=== PATIENT | female | born 1965 | race Caucasian/White ===

== ENCOUNTER 2021-07-03 09:49 | Outpatient (CLI) | payer OTHER | END 2021-07-03 09:50 | disposition home or self-care (01) | LOC: CSHCT 09:49 | PROVIDERS: ATTEND Internal Medicine Hematology & Oncology | DX: C53.8 Malignant neoplasm of overlapping sites of cervix uteri (principal); C78.00 Secondary malignant neoplasm of unspecified lung | CPT/HCPCS: 71260; 74177; 82565 ==

== ENCOUNTER 2021-09-01 13:46 | Emergency (ER) | payer OTHER ==
[2021-09-01 15:15] LABS: #Basophils 0.1 10x3/uL (0.0-0.2); #Eosinphils 0.1 10x3/uL (0.0-0.5); #Monocytes 1.2 10x3/uL (0.0-1.1); #Neutrophils 12.1 10x3/uL (1.5-8.4); %Basophils 0.5 % (0.0-2.0); %Eosinophils 0.5 % (0.0-6.0); %Lymphocytes 16.6 % (18.0-47.0); %Neutrophils 72.9 % (40.0-75.0); Hemoglobin 10.4 g/dL (12.0-15.5); Mean Corpuscular HGB CONC 32.3 g/dL (32.0-36.0); Mean Corpuscular Hemoglobin 29.6 pg (27.0-33.0); Mean Corpuscular Volume 91.7 fl (81.6-98.3); Mean Platelet Volume 9.9 fl (7.4-10.4); Platelet Count 394 10x3/uL (150-450); RBC Distribution Width 16.8 % (11.5-14.5); Red Blood Cell (RBC) Count 3.51 10x6/uL (3.90-5.03); White Blood Cell (WBC) Count 16.6 10x3/uL (3.5-10.5)
[2021-09-01 15:22] LABS: INR-International Normal Ratio 1.1; PTT 27.1 sec (22.0-33.0); Prothrombin Time 12.4 sec (9.5-12.1)
[2021-09-01 15:27] LABS: ALT (SGPT) 10 U/L (8-55); AST (SGOT) 22 U/L (5-34); Albumin 2.9 g/dL (3.5-5.0); Alkaline Phosphatase 91 U/L (40-110); Anion Gap 16 mmol/L (10-20); BUN (Urea Nitrogen) 8 mg/dL (9.8-20.1); Bilirubin, Total 0.6 mg/dL (0.2-1.2); CK (CPK) 13 U/L (29-168); Calc. Creatinine Clearance 0 mL/min (70-130); Calcium 8.4 mg/dL (7.8-10.44); Carbon Dioxide 20 mmol/L (22-29); Chloride 109 mmol/L (98-107); Globulin 4.1 g/dL (2.4-3.5); Glucose 108 mg/dL (70-105); Lipase 134 U/L (8-78); Potassium 3.3 mmol/L (3.5-5.1); Sodium 142 mmol/L (136-145)
[2021-09-01] MEDS ORDERED: Ondansetron PF 4 MG/2 ML Vial ONE (17:05)
[2021-09-01 20:19] LABS: Bilirubin Neg (Negative); Blood, Urine 10 (Negative); Clarity Clear (Clear); Glucose, Urine (Dipstick) Normal (Negative); Ketone, Urine 15 mg/dL (Negative); Leukocyte 25 (Negative); Nitrite Negative (Negative); Protein, Urine (Dipstick) 30 mg/dl (Neg-Trace)
[2021-09-01 20:38] LABS: Bacteria/HPF 1+ HPF (None Seen)
== END 2021-09-01 21:49 | disposition home or self-care (01) ==
LOC: CSHERS 13:46
DX: E86.0 Dehydration (principal); R11.2 Nausea with vomiting, unspecified; E03.9 Hypothyroidism, unspecified; K21.9 Gastro-esophageal reflux disease without esophagitis; G62.9 Polyneuropathy, unspecified
CPT/HCPCS: 36415; 80053; 81003; 81015; 82550; 83605; 83690; 84484; 85025; 85610; 85730; 93005; 96374; J2405

== ENCOUNTER 2021-09-22 11:03 | Inpatient (IN) | payer OTHER ==
[2021-09-22] MEDS ORDERED: Ondansetron PF 4 MG/2 ML Vial ONE (12:08)
[2021-09-22 12:13] LABS: Mean Corpuscular Hemoglobin 29.1 pg (27.0-33.0); Mean Corpuscular Volume 93.7 fl (81.6-98.3); Mean Platelet Volume 10.2 fl (7.4-10.4); Platelet Count 297 10x3/uL (150-450); RBC Distribution Width 16.4 % (11.5-14.5); Red Blood Cell (RBC) Count 4.13 10x6/uL (3.90-5.03); White Blood Cell (WBC) Count 15.9 10x3/uL (3.5-10.5)
[2021-09-22 12:26] LABS: MDiff Complete? YES
[2021-09-22 12:35] LABS: Band 3 % (5-11); Lymphocytes 4 % (21-51); Monocytes 5 % (0-10); Neutrophil 88 % (42-75)
[2021-09-22 12:36] LABS: Anisocytosis SLIGHT = 6-15 cells (100X) (0-5/hpf); Platelet Morphology Comment Appears Adequate
[2021-09-22] MEDS ORDERED: Cefepime 1 GM VIAL ONE (12:43)
[2021-09-22 12:53] LABS: ALT (SGPT) 11 U/L (8-55); AST (SGOT) 24 U/L (5-34); Alkaline Phosphatase 94 U/L (40-110); Anion Gap 16 mmol/L (10-20); BUN (Urea Nitrogen) 13 mg/dL (9.8-20.1); Bilirubin, Total 0.8 mg/dL (0.2-1.2); CK (CPK) 18 U/L (29-168); Calc. Creatinine Clearance 0 mL/min (70-130); Calcium 8.3 mg/dL (7.8-10.44); Carbon Dioxide 20 mmol/L (22-29); Chloride 107 mmol/L (98-107); Globulin 3.8 g/dL (2.4-3.5); Glucose 116 mg/dL (70-105); Lipase 46 U/L (8-78); Potassium 4.2 mmol/L (3.5-5.1); Protein, Total 6.8 g/dL (6.0-8.3); Sodium 139 mmol/L (136-145)
[2021-09-22 13:06] LABS: SARS-CoV-2 NAA Rapid Test Not Detected (NotDetected)
[2021-09-22] MEDS ORDERED: Promethazine HCl 25 MG/ML VIAL ONE (13:54)
[2021-09-22 14:33] LABS: Bilirubin Neg (Negative); Blood, Urine 10 (Negative); Clarity Cloudy (Clear); Glucose, Urine (Dipstick) Normal (Negative); Ketone, Urine Negative (Negative); Leukocyte 500 (Negative); Nitrite Negative (Negative); Protein, Urine (Dipstick) 30 mg/dl (Neg-Trace); Specific Gravity, Urine 1.005 (1.002-1.036); Urobilinogen Normal mg/dL (Less than 2); pH, Urine 6.5 (5.0-9.0)
[2021-09-22 14:35] LABS: RBC/HPF 0-3 HPF (0-3)
[2021-09-22 14:36] LABS: Bacteria/HPF 3+ HPF (None Seen)
[2021-09-22] MEDS ORDERED: Ondansetron ODT 4 MG TAB PO PRN (14:50)
[2021-09-22] MEDS ORDERED: Acetaminophen 650 MG Suppository PR PRN (14:50)
[2021-09-22] MEDS ORDERED: Nitroglycerin 0.4 MG TAB (25 Tab Bottle) SL PRN (15:08)
[2021-09-22 15:36] LABS: Lactic Acid 1.6 mmol/L (0.5-2.2)
[2021-09-22] MEDS: Sodium Chloride 0.9% 1,000 ML IV SCH (19:39)
[2021-09-22] MEDS: Metoprolol Tartrate 25 MG TAB PO SCH (22:07)
[2021-09-22] MEDS: Ondansetron PF 4 MG/2 ML Vial IVP PRN (22:07)
[2021-09-22] MEDS: Gabapentin 300 MG CAP PO SCH (22:07)
[2021-09-23] MEDS: Cefepime 1 GM in Sodium Chloride 0.9% 100 ML IVPB SCH ×2 (01:44→13:47)
[2021-09-23] MEDS: Sodium Chloride 0.9% 1,000 ML IV SCH ×3 (01:56→21:23)
[2021-09-23] MEDS: Acetaminophen 325 MG TAB PO PRN ×3 (02:03→21:21)
[2021-09-23 02:48] VITALS: BMI 37.2
[2021-09-23 06:03] LABS: Anion Gap 14 mmol/L (10-20); BUN (Urea Nitrogen) 12 mg/dL (9.8-20.1); Calc. Creatinine Clearance 94 mL/min (70-130); Carbon Dioxide 19 mmol/L (22-29); Chloride 110 mmol/L (98-107); Glucose 95 mg/dL (70-105); Potassium 4.2 mmol/L (3.5-5.1); Sodium 139 mmol/L (136-145)
[2021-09-23 06:12] LABS: #Basophils 0.1 10x3/uL (0.0-0.2); #Monocytes 0.4 10x3/uL (0.0-1.1); #Neutrophils 11.9 10x3/uL (1.5-8.4); %Basophils 0.4 % (0.0-2.0); %Eosinophils 0.1 % (0.0-6.0); %Monocytes 2.9 % (0.0-10.0); %Neutrophils 90.1 % (40.0-75.0); Hemoglobin 9.2 g/dL (12.0-15.5); Mean Corpuscular Hemoglobin 29.1 pg (27.0-33.0); Mean Corpuscular Volume 97.2 fl (81.6-98.3); Mean Platelet Volume 10.3 fl (7.4-10.4); Platelet Count 207 10x3/uL (150-450); RBC Distribution Width 16.5 % (11.5-14.5); Red Blood Cell (RBC) Count 3.16 10x6/uL (3.90-5.03); White Blood Cell (WBC) Count 13.2 10x3/uL (3.5-10.5)
[2021-09-23] MEDS: Levothyroxine Sodium 25 MCG TAB PO SCH (06:12)
[2021-09-23] MEDS: Polyethylene Glycol 3350 17 GM Packet PO SCH (08:12)
[2021-09-23] MEDS: Enoxaparin Sodium 40 MG/0.4 ML SYRINGE SC SCH (08:12)
[2021-09-23] MEDS: Ondansetron PF 4 MG/2 ML Vial IVP PRN ×3 (08:13→21:09)
[2021-09-23] MEDS: Potassium Chloride 10 MEQ TAB PO SCH (08:13)
[2021-09-23] MEDS: Metoprolol Tartrate 25 MG TAB PO SCH ×2 (08:13→21:10)
[2021-09-23] MEDS: NIFEdipine XL 30 MG TAB PO SCH (08:14)
[2021-09-23] MEDS: Amlodipine 5 MG TAB PO SCH (08:14)
[2021-09-23] MEDS: Aspirin Chewable 81 MG TAB PO SCH (08:14)
[2021-09-23] MEDS: Valsartan 80 MG TAB PO SCH (08:32)
[2021-09-23] MEDS: Promethazine HCl 12.5 MG in Sodium Chloride 0.9% 50 ML IVPB PRN (17:33)
[2021-09-23] MEDS: Gabapentin 300 MG CAP PO SCH (21:10)
[2021-09-24] MEDS: Cefepime 1 GM in Sodium Chloride 0.9% 100 ML IVPB SCH ×2 (01:12→14:15)
[2021-09-24] MEDS: Sodium Chloride 0.9% 1,000 ML IV SCH ×2 (05:27→14:15)
[2021-09-24] MEDS: Levothyroxine Sodium 25 MCG TAB PO SCH (05:27)
[2021-09-24 05:56] LABS: Anion Gap 12 mmol/L (10-20); BUN (Urea Nitrogen) 11 mg/dL (9.8-20.1); Calc. Creatinine Clearance 112 mL/min (70-130); Calcium 7.4 mg/dL (7.8-10.44); Carbon Dioxide 18 mmol/L (22-29); Chloride 111 mmol/L (98-107); Glucose 93 mg/dL (70-105); Potassium 3.8 mmol/L (3.5-5.1); Sodium 137 mmol/L (136-145)
[2021-09-24 06:02] LABS: #Basophils 0.1 10x3/uL (0.0-0.2); #Eosinphils 0.1 10x3/uL (0.0-0.5); #Monocytes 1.2 10x3/uL (0.0-1.1); #Neutrophils 7.5 10x3/uL (1.5-8.4); %Basophils 0.6 % (0.0-2.0); %Eosinophils 0.6 % (0.0-6.0); %Lymphocytes 17.4 % (18.0-47.0); %Monocytes 11.4 % (0.0-10.0); %Neutrophils 69.4 % (40.0-75.0); Hemoglobin 8.3 g/dL (12.0-15.5); Mean Corpuscular HGB CONC 30.7 g/dL (32.0-36.0); Mean Corpuscular Hemoglobin 28.8 pg (27.0-33.0); Mean Corpuscular Volume 93.8 fl (81.6-98.3); Mean Platelet Volume 10.5 fl (7.4-10.4); Platelet Count 185 10x3/uL (150-450); RBC Distribution Width 16.4 % (11.5-14.5); Red Blood Cell (RBC) Count 2.88 10x6/uL (3.90-5.03); White Blood Cell (WBC) Count 10.8 10x3/uL (3.5-10.5)
[2021-09-24] MEDS ORDERED: FLU VACC QS2021-22(6MOS UP)/PF 60 MCG/0.5 ML SYRINGE IM ONE (09:00)
[2021-09-24] MEDS: Ondansetron PF 4 MG/2 ML Vial IVP PRN ×2 (10:02→20:31)
[2021-09-24] MEDS: Potassium Chloride 10 MEQ TAB PO SCH (10:08)
[2021-09-24] MEDS: Amlodipine 5 MG TAB PO SCH (10:08)
[2021-09-24] MEDS: NIFEdipine XL 30 MG TAB PO SCH (10:09)
[2021-09-24] MEDS: Metoprolol Tartrate 25 MG TAB PO SCH ×2 (10:09→20:30)
[2021-09-24] MEDS: Acetaminophen 325 MG TAB PO PRN ×2 (10:09→23:28)
[2021-09-24] MEDS: Aspirin Chewable 81 MG TAB PO SCH (10:10)
[2021-09-24] MEDS: Enoxaparin Sodium 40 MG/0.4 ML SYRINGE SC SCH (10:10)
[2021-09-24] MEDS: Polyethylene Glycol 3350 17 GM Packet PO SCH (10:11)
[2021-09-24] MEDS: Valsartan 80 MG TAB PO SCH (10:11)
[2021-09-24] MEDS: Promethazine HCl 12.5 MG in Sodium Chloride 0.9% 50 ML IVPB PRN (15:21)
[2021-09-24] MEDS: Gabapentin 300 MG CAP PO SCH (20:30)
[2021-09-25] MEDS: Cefepime 1 GM in Sodium Chloride 0.9% 100 ML IVPB SCH ×2 (00:20→15:50)
[2021-09-25] MEDS ORDERED: VANCOMYCIN 2 GM IVPB SCH (01:00)
[2021-09-25] MEDS ORDERED: SODIUM CHLORIDE 0.9% IVPB SCH (01:00)
[2021-09-25] MEDS: Sodium Chloride 0.9% 1,000 ML IV SCH ×3 (04:17→23:00)
[2021-09-25 04:18] LABS: Mean Corpuscular HGB CONC 31.4 g/dL (32.0-36.0); Mean Corpuscular Hemoglobin 28.9 pg (27.0-33.0); Mean Corpuscular Volume 92.3 fl (81.6-98.3); Mean Platelet Volume 10.9 fl (7.4-10.4); Platelet Count 189 10x3/uL (150-450); RBC Distribution Width 16.3 % (11.5-14.5); Red Blood Cell (RBC) Count 3.11 10x6/uL (3.90-5.03); White Blood Cell (WBC) Count 17.8 10x3/uL (3.5-10.5)
[2021-09-25 04:33] LABS: MDiff Complete? YES
[2021-09-25 04:37] LABS: Band 24 % (5-11); Large Platelets SLIGHT; Lymphocytes 7 % (21-51); Monocytes 3 % (0-10); Neutrophil 66 % (42-75); Platelet Morphology Comment Appears Adequate; Vacuoles SLIGHT
[2021-09-25 04:38] LABS: RBC Morphology Normal
[2021-09-25 04:40] LABS: Lactic Acid 1.3 mmol/L (0.5-2.2)
[2021-09-25 04:44] LABS: Anion Gap 13 mmol/L (10-20); BUN (Urea Nitrogen) 9 mg/dL (9.8-20.1); Calc. Creatinine Clearance 95 mL/min (70-130); Calcium 7.3 mg/dL (7.8-10.44); Carbon Dioxide 16 mmol/L (22-29); Chloride 110 mmol/L (98-107); Glucose 106 mg/dL (70-105); Potassium 3.1 mmol/L (3.5-5.1); Sodium 136 mmol/L (136-145)
[2021-09-25] MEDS: Levothyroxine Sodium 25 MCG TAB PO SCH (05:51)
[2021-09-25] MEDS: Metoprolol Tartrate 25 MG TAB PO SCH ×2 (09:14→21:46)
[2021-09-25] MEDS: Amlodipine 5 MG TAB PO SCH (09:14)
[2021-09-25] MEDS: Potassium Chloride 10 MEQ TAB PO SCH (09:14)
[2021-09-25] MEDS: Enoxaparin Sodium 40 MG/0.4 ML SYRINGE SC SCH (09:15)
[2021-09-25] MEDS: Aspirin Chewable 81 MG TAB PO SCH (09:15)
[2021-09-25] MEDS: Valsartan 80 MG TAB PO SCH (09:15)
[2021-09-25] MEDS: Ondansetron PF 4 MG/2 ML Vial IVP PRN (09:16)
[2021-09-25] MEDS: Polyethylene Glycol 3350 17 GM Packet PO SCH (09:32)
[2021-09-25] MEDS ORDERED: metroNIDAZOLE 500 MG in Premix Bag 1 BAG IVPB SCH (12:00)
[2021-09-25] MEDS: Micafungin 100 MG in Sodium Chloride 0.9% 100 ML IVPB SCH (12:24)
[2021-09-25] MEDS ORDERED: Fentanyl 100 MCG/2 ML VIAL ONE (13:36)
[2021-09-25] MEDS ORDERED: Lidocaine 1% PF 5 ML VIAL ONE (13:36)
[2021-09-25] MEDS ORDERED: Sodium Bicarbonate 2.5 MEQ/5 ML VIAL ONE (13:37)
[2021-09-25] MEDS ORDERED: Midazolam HCl 5 mg/5 ml Vial ONE (13:37)
[2021-09-25] MEDS: metroNIDAZOLE 500 MG TAB PO SCH ×2 (15:51→21:46)
[2021-09-25] MEDS ORDERED: VANCOMYCIN 1.5 GM in Sodium Chloride 0.9% 500 ML IVPB SCH (19:30)
[2021-09-25] MEDS: Gabapentin 300 MG CAP PO SCH (21:46)
[2021-09-26] MEDS: Ondansetron PF 4 MG/2 ML Vial IVP PRN ×2 (03:03→18:54)
[2021-09-26] MEDS: Acetaminophen 325 MG TAB PO PRN (03:03)
[2021-09-26] MEDS: Cefepime 1 GM in Sodium Chloride 0.9% 100 ML IVPB SCH ×2 (04:41→13:26)
[2021-09-26] MEDS: Levothyroxine Sodium 25 MCG TAB PO SCH (06:14)
[2021-09-26] MEDS: Enoxaparin Sodium 40 MG/0.4 ML SYRINGE SC SCH (09:01)
[2021-09-26] MEDS: metroNIDAZOLE 500 MG TAB PO SCH (09:01)
[2021-09-26] MEDS: Amlodipine 5 MG TAB PO SCH ×2 (09:01→09:28)
[2021-09-26] MEDS: Potassium Chloride 10 MEQ TAB PO SCH (09:01)
[2021-09-26] MEDS: Metoprolol Tartrate 25 MG TAB PO SCH ×3 (09:01→21:05)
[2021-09-26] MEDS: Polyethylene Glycol 3350 17 GM Packet PO SCH ×2 (09:02→09:18)
[2021-09-26] MEDS: Sodium Chloride 0.9% 1,000 ML IV SCH ×2 (09:02→19:00)
[2021-09-26] MEDS: Aspirin Chewable 81 MG TAB PO SCH (09:02)
[2021-09-26 09:13] LABS: ALT (SGPT) 19 U/L (8-55); AST (SGOT) 37 U/L (5-34); Albumin 2.3 g/dL (3.5-5.0); Alkaline Phosphatase 142 U/L (40-110); Anion Gap 15 mmol/L (10-20); BUN (Urea Nitrogen) 9 mg/dL (9.8-20.1); Bilirubin, Total 0.5 mg/dL (0.2-1.2); Calc. Creatinine Clearance 106 mL/min (70-130); Calcium 7.5 mg/dL (7.8-10.44); Carbon Dioxide 15 mmol/L (22-29); Chloride 110 mmol/L (98-107); Globulin 3.5 g/dL (2.4-3.5); Glucose 101 mg/dL (70-105); Protein, Total 5.8 g/dL (6.0-8.3); Sodium 137 mmol/L (136-145)
[2021-09-26 09:17] LABS: Hemoglobin 9.1 g/dL (12.0-15.5); Mean Corpuscular HGB CONC 31.3 g/dL (32.0-36.0); Mean Corpuscular Hemoglobin 28.7 pg (27.0-33.0); Mean Corpuscular Volume 91.8 fl (81.6-98.3); Mean Platelet Volume 11.2 fl (7.4-10.4); Platelet Count 181 10x3/uL (150-450); RBC Distribution Width 16.7 % (11.5-14.5); Red Blood Cell (RBC) Count 3.17 10x6/uL (3.90-5.03); White Blood Cell (WBC) Count 21.8 10x3/uL (3.5-10.5)
[2021-09-26 09:55] LABS: MDiff Complete? YES
[2021-09-26 10:06] LABS: Band 6 % (5-11); Lymphocytes 4 % (21-51); Monocytes 5 % (0-10); Neutrophil 84 % (42-75)
[2021-09-26 10:09] LABS: Platelet Morphology Comment Appears Adequate; RBC Morphology Normal
[2021-09-26] MEDS: Micafungin 100 MG in Sodium Chloride 0.9% 100 ML IVPB SCH (12:10)
[2021-09-26 13:15] LABS: Vancomycin, Trough 21.2 ug/mL
[2021-09-26] MEDS ORDERED: Cefepime 1 GM VIAL ONE (13:26)
[2021-09-26] MEDS: Potassium Chloride 20 MEQ in Premix Bag 1 BAG IVPB SCH ×2 (14:45→18:42)
[2021-09-26] MEDS ORDERED: Meropenem 1 GM in Sodium Chloride 0.9% 100 ML IVPB SCH (15:00)
[2021-09-26] MEDS: Gabapentin 300 MG CAP PO SCH (21:05)
[2021-09-26] MEDS: Meropenem 1 GM in Sodium Chloride 0.9% 100 ML IVPB SCH (21:06)
[2021-09-27] MEDS: Sodium Chloride 0.9% 1,000 ML IV SCH ×2 (05:00→15:04)
[2021-09-27 05:07] LABS: #Basophils 0.1 10x3/uL (0.0-0.2); #Eosinphils 0.2 10x3/uL (0.0-0.5); #Monocytes 1.5 10x3/uL (0.0-1.1); #Neutrophils 14.3 10x3/uL (1.5-8.4); %Basophils 0.3 % (0.0-2.0); %Eosinophils 1.2 % (0.0-6.0); %Lymphocytes 16.6 % (18.0-47.0); %Monocytes 7.6 % (0.0-10.0); %Neutrophils 73.3 % (40.0-75.0); Hemoglobin 8.5 g/dL (12.0-15.5); Mean Corpuscular HGB CONC 31.7 g/dL (32.0-36.0); Mean Corpuscular Hemoglobin 28.9 pg (27.0-33.0); Mean Corpuscular Volume 91.2 fl (81.6-98.3); Mean Platelet Volume 11.4 fl (7.4-10.4); Platelet Count 176 10x3/uL (150-450); RBC Distribution Width 16.9 % (11.5-14.5); Red Blood Cell (RBC) Count 2.94 10x6/uL (3.90-5.03); White Blood Cell (WBC) Count 19.5 10x3/uL (3.5-10.5)
[2021-09-27] MEDS: Meropenem 1 GM in Sodium Chloride 0.9% 100 ML IVPB SCH ×3 (05:57→21:36)
[2021-09-27] MEDS: Levothyroxine Sodium 25 MCG TAB PO SCH (05:57)
[2021-09-27] MEDS: Polyethylene Glycol 3350 17 GM Packet PO SCH (09:51)
[2021-09-27] MEDS: Potassium Chloride 10 MEQ TAB PO SCH (09:51)
[2021-09-27] MEDS: Metoprolol Tartrate 25 MG TAB PO SCH ×2 (09:51→21:35)
[2021-09-27] MEDS: Aspirin Chewable 81 MG TAB PO SCH (09:51)
[2021-09-27] MEDS: Amlodipine 5 MG TAB PO SCH (09:51)
[2021-09-27] MEDS: Enoxaparin Sodium 40 MG/0.4 ML SYRINGE SC SCH (09:51)
[2021-09-27] MEDS: Ondansetron PF 4 MG/2 ML Vial IVP PRN (20:24)
[2021-09-27] MEDS: Gabapentin 300 MG CAP PO SCH (21:35)
[2021-09-28] MEDS: Sodium Chloride 0.9% 1,000 ML IV SCH ×3 (00:23→22:00)
[2021-09-28] MEDS: Levothyroxine Sodium 25 MCG TAB PO SCH (06:32)
[2021-09-28] MEDS: Meropenem 1 GM in Sodium Chloride 0.9% 100 ML IVPB SCH ×3 (06:32→23:30)
[2021-09-28 09:33] LABS: #Basophils 0.1 10x3/uL (0.0-0.2); #Eosinphils 0.2 10x3/uL (0.0-0.5); #Monocytes 0.9 10x3/uL (0.0-1.1); #Neutrophils 9.6 10x3/uL (1.5-8.4); %Basophils 0.7 % (0.0-2.0); %Eosinophils 1.4 % (0.0-6.0); %Lymphocytes 17.3 % (18.0-47.0); %Monocytes 6.8 % (0.0-10.0); %Neutrophils 69.3 % (40.0-75.0); Hemoglobin 9.4 g/dL (12.0-15.5); Mean Corpuscular HGB CONC 31.8 g/dL (32.0-36.0); Mean Corpuscular Hemoglobin 28.7 pg (27.0-33.0); Mean Corpuscular Volume 90.5 fl (81.6-98.3); Mean Platelet Volume 11.2 fl (7.4-10.4); Platelet Count 191 10x3/uL (150-450); Red Blood Cell (RBC) Count 3.27 10x6/uL (3.90-5.03); White Blood Cell (WBC) Count 13.8 10x3/uL (3.5-10.5)
[2021-09-28] MEDS: Acetaminophen 325 MG TAB PO PRN (09:35)
[2021-09-28] MEDS: Enoxaparin Sodium 40 MG/0.4 ML SYRINGE SC SCH (09:36)
[2021-09-28] MEDS: Ondansetron PF 4 MG/2 ML Vial IVP PRN ×3 (09:36→20:56)
[2021-09-28] MEDS: Potassium Chloride 10 MEQ TAB PO SCH (09:36)
[2021-09-28] MEDS: Aspirin Chewable 81 MG TAB PO SCH (09:36)
[2021-09-28] MEDS: Polyethylene Glycol 3350 17 GM Packet PO SCH (09:36)
[2021-09-28] MEDS: Metoprolol Tartrate 25 MG TAB PO SCH ×2 (09:36→20:55)
[2021-09-28 09:37] LABS: ALT (SGPT) 14 U/L (8-55); AST (SGOT) 22 U/L (5-34); Albumin 2.4 g/dL (3.5-5.0); Alkaline Phosphatase 130 U/L (40-110); Anion Gap 13 mmol/L (10-20); BUN (Urea Nitrogen) 5 mg/dL (9.8-20.1); Bilirubin, Total 0.4 mg/dL (0.2-1.2); Calc. Creatinine Clearance 141 mL/min (70-130); Carbon Dioxide 18 mmol/L (22-29); Chloride 108 mmol/L (98-107); Globulin 3.8 g/dL (2.4-3.5); Glucose 135 mg/dL (70-105); Potassium 3.1 mmol/L (3.5-5.1); Protein, Total 6.2 g/dL (6.0-8.3); Sodium 136 mmol/L (136-145)
[2021-09-28] MEDS: Amlodipine 5 MG TAB PO SCH (09:37)
[2021-09-28] MEDS ORDERED: Senokot 8.6 MG TAB PO PRN (12:21)
[2021-09-28] MEDS: Potassium Chloride 20 MEQ in Premix Bag 1 BAG IVPB SCH ×2 (15:31→18:09)
[2021-09-28] MEDS: Gabapentin 300 MG CAP PO SCH (20:54)
[2021-09-29] MEDS: Levothyroxine Sodium 25 MCG TAB PO SCH (05:14)
[2021-09-29] MEDS: Ondansetron PF 4 MG/2 ML Vial IVP PRN ×3 (05:14→16:47)
[2021-09-29] MEDS: Meropenem 1 GM in Sodium Chloride 0.9% 100 ML IVPB SCH ×3 (06:06→21:59)
[2021-09-29] MEDS: Amlodipine 5 MG TAB PO SCH (10:51)
[2021-09-29] MEDS: Aspirin Chewable 81 MG TAB PO SCH (10:51)
[2021-09-29] MEDS: Potassium Chloride 10 MEQ TAB PO SCH (10:52)
[2021-09-29] MEDS: Metoprolol Tartrate 25 MG TAB PO SCH ×2 (10:52→20:34)
[2021-09-29] MEDS: Enoxaparin Sodium 40 MG/0.4 ML SYRINGE SC SCH (10:53)
[2021-09-29 11:01] LABS: Anion Gap 11 mmol/L (10-20); BUN (Urea Nitrogen) 4 mg/dL (9.8-20.1); Calc. Creatinine Clearance 151 mL/min (70-130); Calcium 8.1 mg/dL (7.8-10.44); Carbon Dioxide 20 mmol/L (22-29); Chloride 106 mmol/L (98-107); Glucose 113 mg/dL (70-105); Potassium 3.7 mmol/L (3.5-5.1); Sodium 133 mmol/L (136-145)
[2021-09-29] MEDS: Sodium Chloride 0.9% 1,000 ML IV SCH (19:23)
[2021-09-29] MEDS: Gabapentin 300 MG CAP PO SCH (20:34)
[2021-09-29] MEDS: Promethazine HCl 12.5 MG in Sodium Chloride 0.9% 50 ML IVPB PRN (20:42)
[2021-09-30 05:12] LABS: Hemoglobin 8.5 g/dL (12.0-15.5); Mean Corpuscular HGB CONC 32.3 g/dL (32.0-36.0); Mean Corpuscular Hemoglobin 29.3 pg (27.0-33.0); Mean Corpuscular Volume 90.7 fl (81.6-98.3); Mean Platelet Volume 11.6 fl (7.4-10.4); Platelet Count 237 10x3/uL (150-450); RBC Distribution Width 17.2 % (11.5-14.5)
[2021-09-30 05:14] LABS: Anion Gap 10 mmol/L (10-20); BUN (Urea Nitrogen) Less than 4 mg/dL (9.8-20.1); Calc. Creatinine Clearance 157 mL/min (70-130); Carbon Dioxide 21 mmol/L (22-29); Chloride 106 mmol/L (98-107); Glucose 91 mg/dL (70-105); Potassium 3.2 mmol/L (3.5-5.1); Sodium 134 mmol/L (136-145)
[2021-09-30 05:42] LABS: Band 12 % (5-11); Lymphocytes 17 % (21-51); Metamyelocyte 2 % (0-0); Monocytes 16 % (0-10); Myelocyte 4 % (0-0); Nucleated RBC 1 % (0); Reactive Lymphocytes 1 % (0-10)
[2021-09-30 05:43] LABS: Neutrophil 48 % (42-75)
[2021-09-30 05:46] LABS: Anisocytosis SLIGHT = 6-15 cells (100X) (0-5/hpf); Macrocytosis SLIGHT = 6-15 cells (100X) (0-5/hpf); Microcytosis SLIGHT = 6-15 cells (100X) (0-5/hpf)
[2021-09-30 05:47] LABS: Large Platelets MODERATE; Platelet Morphology Comment Appears Adequate
[2021-09-30 05:48] LABS: MDiff Complete? YES
[2021-09-30] MEDS: Meropenem 1 GM in Sodium Chloride 0.9% 100 ML IVPB SCH ×3 (06:20→20:34)
[2021-09-30] MEDS: Levothyroxine Sodium 25 MCG TAB PO SCH (06:20)
[2021-09-30] MEDS: Sodium Chloride 0.9% 1,000 ML IV SCH (06:20)
[2021-09-30] MEDS: Metoprolol Tartrate 25 MG TAB PO SCH ×2 (08:38→20:34)
[2021-09-30] MEDS: Aspirin Chewable 81 MG TAB PO SCH (08:38)
[2021-09-30] MEDS: Potassium Chloride 10 MEQ TAB PO SCH (08:38)
[2021-09-30] MEDS: Amlodipine 5 MG TAB PO SCH (08:38)
[2021-09-30] MEDS: Ondansetron PF 4 MG/2 ML Vial IVP PRN ×2 (08:38→13:29)
[2021-09-30] MEDS: Enoxaparin Sodium 40 MG/0.4 ML SYRINGE SC SCH (08:39)
[2021-09-30] MEDS: Gabapentin 300 MG CAP PO SCH (20:34)
[2021-10-01 04:31] LABS: Hemoglobin 8.8 g/dL (12.0-15.5); Mean Corpuscular HGB CONC 31.9 g/dL (32.0-36.0); Mean Corpuscular Hemoglobin 28.9 pg (27.0-33.0); Mean Corpuscular Volume 90.5 fl (81.6-98.3); Mean Platelet Volume 11.2 fl (7.4-10.4); Platelet Count 290 10x3/uL (150-450); RBC Distribution Width 17.2 % (11.5-14.5); Red Blood Cell (RBC) Count 3.05 10x6/uL (3.90-5.03); White Blood Cell (WBC) Count 11.5 10x3/uL (3.5-10.5)
[2021-10-01 04:49] LABS: Anion Gap 15 mmol/L (10-20); BUN (Urea Nitrogen) Less than 4 mg/dL (9.8-20.1); Calc. Creatinine Clearance 166 mL/min (70-130); Calcium 7.9 mg/dL (7.8-10.44); Carbon Dioxide 18 mmol/L (22-29); Chloride 105 mmol/L (98-107); Glucose 88 mg/dL (70-105); Potassium 3.3 mmol/L (3.5-5.1); Sodium 135 mmol/L (136-145)
[2021-10-01] MEDS: Meropenem 1 GM in Sodium Chloride 0.9% 100 ML IVPB SCH ×3 (05:45→21:26)
[2021-10-01] MEDS: Levothyroxine Sodium 25 MCG TAB PO SCH (05:46)
[2021-10-01 07:33] LABS: MDiff Complete? YES
[2021-10-01 07:36] LABS: Band 8 % (5-11); Eosinophils 2 % (0-10); Lymphocytes 28 % (21-51); Monocytes 7 % (0-10); Neutrophil 55 % (42-75)
[2021-10-01 07:37] LABS: Platelet Morphology Comment Appears Adequate; RBC Morphology Normal
[2021-10-01] MEDS: Aspirin Chewable 81 MG TAB PO SCH (08:17)
[2021-10-01] MEDS: Enoxaparin Sodium 40 MG/0.4 ML SYRINGE SC SCH (08:17)
[2021-10-01] MEDS: Amlodipine 5 MG TAB PO SCH (08:17)
[2021-10-01] MEDS: Potassium Chloride 10 MEQ TAB PO SCH (08:18)
[2021-10-01] MEDS: Metoprolol Tartrate 25 MG TAB PO SCH ×2 (08:18→21:27)
[2021-10-01] MEDS: Ondansetron PF 4 MG/2 ML Vial IVP PRN ×2 (08:18→14:11)
[2021-10-01] MEDS ORDERED: Potassium Chloride 20 MEQ TAB PO SCH (11:00)
[2021-10-01] MEDS: Sodium Chloride 0.9% 1,000 ML IV SCH (14:11)
[2021-10-01] MEDS ORDERED: Lidocaine 1% PF 5 ML VIAL ONE (14:45)
[2021-10-01] MEDS ORDERED: Sodium Bicarbonate 2.5 MEQ/5 ML VIAL ONE (14:45)
[2021-10-01 17:38] LABS: Fungus Stain Final report (.)
[2021-10-01] MEDS: Promethazine HCl 12.5 MG in Sodium Chloride 0.9% 50 ML IVPB PRN (18:24)
[2021-10-01] MEDS: Gabapentin 300 MG CAP PO SCH (21:27)
[2021-10-02] MEDS ORDERED: Sodium Chloride 0.9% 100 ML ONE (06:01)
[2021-10-02] MEDS ORDERED: Meropenem 1 GM VIAL ONE (06:01)
[2021-10-02] MEDS: Levothyroxine Sodium 25 MCG TAB PO SCH (06:04)
[2021-10-02] MEDS: Meropenem 1 GM in Sodium Chloride 0.9% 100 ML IVPB SCH ×2 (06:04→14:04)
[2021-10-02 06:28] LABS: Anion Gap 13 mmol/L (10-20); BUN (Urea Nitrogen) 4 mg/dL (9.8-20.1); Calc. Creatinine Clearance 172 mL/min (70-130); Carbon Dioxide 21 mmol/L (22-29); Chloride 107 mmol/L (98-107); Glucose 88 mg/dL (70-105); Sodium 137 mmol/L (136-145)
[2021-10-02] MEDS: Sodium Chloride 0.9% 1,000 ML IV SCH (07:22)
[2021-10-02] MEDS: Amlodipine 5 MG TAB PO SCH (08:08)
[2021-10-02] MEDS: Acetaminophen 325 MG TAB PO PRN (08:08)
[2021-10-02] MEDS: Metoprolol Tartrate 25 MG TAB PO SCH (08:09)
[2021-10-02] MEDS: Ondansetron PF 4 MG/2 ML Vial IVP PRN ×2 (08:09→14:04)
[2021-10-02] MEDS: Aspirin Chewable 81 MG TAB PO SCH (08:09)
[2021-10-02] MEDS: Enoxaparin Sodium 40 MG/0.4 ML SYRINGE SC SCH (08:09)
[2021-10-02] MEDS: Potassium Chloride 10 MEQ TAB PO SCH (08:09)
[2021-10-02 08:20] LABS: Hemoglobin 9.2 g/dL (12.0-15.5); Mean Corpuscular HGB CONC 31.6 g/dL (32.0-36.0); Mean Corpuscular Hemoglobin 28.7 pg (27.0-33.0); Mean Corpuscular Volume 90.7 fl (81.6-98.3); Mean Platelet Volume 11.8 fl (7.4-10.4); Platelet Count 293 10x3/uL (150-450); RBC Distribution Width 17.4 % (11.5-14.5); Red Blood Cell (RBC) Count 3.21 10x6/uL (3.90-5.03); White Blood Cell (WBC) Count 10.3 10x3/uL (3.5-10.5)
[2021-10-02 09:39] LABS: MDiff Complete? YES; Manual Diff?? YES
[2021-10-02 09:56] LABS: Band 1 % (5-11); Eosinophils 3 % (0-10); Lymphocytes 15 % (21-51); Metamyelocyte 4 % (0-0); Monocytes 7 % (0-10); Myelocyte 2 % (0-0); Neutrophil 68 % (42-75)
[2021-10-02 09:57] LABS: Diff Comment (RBC Morph SCRN) NORMAL
[2021-10-02 16:15] VITALS: BP 134/78; TEMP 98.1
== END 2021-10-02 18:10 | disposition home or self-care (01) | DRG 871 ==
LOC: CSHERS 11:03 → CSHTELE 19:33
PROVIDERS: ADMIT Internal Medicine; ATTEND Internal Medicine
PROC: 0F9G30Z Drainage of Pancreas with Drainage Device, Percutaneous Approach (ICD-10-PCS; 2021-09-25)
PROC: 02HV33Z Insertion of Infusion Device into Superior Vena Cava, Percutaneous Approach (ICD-10-PCS; principal; 2021-10-01)
PROC: B548ZZA Ultrasonography of Superior Vena Cava, Guidance (ICD-10-PCS; 2021-10-01)
PROC: B5181ZA Fluoroscopy of Superior Vena Cava using Low Osmolar Contrast, Guidance (ICD-10-PCS; 2021-10-01)
DX: A41.9 Sepsis, unspecified organism (principal); K68.19 Other retroperitoneal abscess; K85.92 Acute pancreatitis with infected necrosis, unspecified; K86.1 Other chronic pancreatitis; C78.00 Secondary malignant neoplasm of unspecified lung; C78.7 Secondary malignant neoplasm of liver and intrahepatic bile duct; N39.0 Urinary tract infection, site not specified; N17.9 Acute kidney failure, unspecified; Z20.822 Contact with and (suspected) exposure to COVID-19; I10 Essential (primary) hypertension; E03.9 Hypothyroidism, unspecified; E87.6 Hypokalemia; C53.9 Malignant neoplasm of cervix uteri, unspecified; G62.9 Polyneuropathy, unspecified; E66.9 Obesity, unspecified; E86.0 Dehydration; K21.9 Gastro-esophageal reflux disease without esophagitis; Z88.8 Allergy status to other drugs, medicaments and biological substances; Z88.2 Allergy status to sulfonamides; Z87.442 Personal history of urinary calculi; Z90.89 Acquired absence of other organs; Z98.51 Tubal ligation status; Z87.891 Personal history of nicotine dependence; Z79.899 Other long term (current) drug therapy; Z79.890 Hormone replacement therapy; Z79.82 Long term (current) use of aspirin; Z87.11 Personal history of peptic ulcer disease; Z68.37 Body mass index [BMI] 37.0-37.9, adult
CPT/HCPCS: 36415; 36416; 36569; 71045; 71275; 77012; 80048; 80053; 80202; 81003; 81015; 82550; 83605; 83690; 83880; 84484; 85025; 85379; 87040; 87070; 87076; 87086; 87102; 87149; 87205; 87206; 93005; 93970; 96365; 96366; 96367; 96375; C1751; J0692; J1650; J2185; J2248; J2250; J2405; J2550; J3010; J3370; J3480; J3490; J7030; J7050; Q0162; U0002

== ENCOUNTER 2022-01-09 10:24 | Outpatient (CLI) | payer OTHER | END 2022-01-09 10:25 | disposition home or self-care (01) | LOC: CSHWCC 10:24 | PROVIDERS: ATTEND Nurse Practitioner Family | DX: T81.89XD Other complications of procedures, not elsewhere classified, subsequent encounter (principal) | CPT/HCPCS: 97605; 99203; G0463 ==

== ENCOUNTER 2022-01-11 10:59 | Outpatient (CLI) | payer OTHER | END 2022-01-11 11:00 | disposition home or self-care (01) | LOC: CSHWCC 10:59 | PROVIDERS: ATTEND Nurse Practitioner Family | DX: T81.89XD Other complications of procedures, not elsewhere classified, subsequent encounter (principal) | CPT/HCPCS: 97605 ==